=== PATIENT | male | born 1960 | race Caucasian/White ===

== ENCOUNTER 2021-02-04 15:25 | Inpatient (IN) | payer BC ==
[2021-02-04] MEDS ORDERED: Midazolam HCl 2 mg/2 ml Vial ONE (15:56)
[2021-02-04] MEDS ORDERED: Fentanyl 250 MCG/5 ML VIAL ONE (15:56)
[2021-02-04] MEDS ORDERED: SUGAMMADEX SODIUM 200 MG/2 ML VIAL ONE (16:54)
[2021-02-04] MEDS ORDERED: PROPOFOL 200 MG/20 ML VIAL ONE (17:02)
[2021-02-04] MEDS ORDERED: Ketorolac Tromethamine 30 MG/ML VIAL ONE (17:02)
[2021-02-04] MEDS ORDERED: Lidocaine 1% PF 5 ML VIAL ONE (17:02)
[2021-02-04] MEDS ORDERED: Ropivacaine 0.5% HCl/PF (150 MG/30 ML VIAL) ONE (17:02)
[2021-02-04] MEDS ORDERED: Succinylcholine 200 MG/10 ml SYRINGE FS ONE (17:02)
[2021-02-04] MEDS ORDERED: Ondansetron PF 4 MG/2 ML Vial ONE (17:02)
[2021-02-04] MEDS ORDERED: Rocuronium Bromide 10 MG/ML (10ML VIAL) ONE (17:02)
[2021-02-04] MEDS ORDERED: Dexamethasone 20 MG/5 ML VIAL ONE (17:02)
[2021-02-04] MEDS ORDERED: ceFOXitin 1 GM VIAL ONE (17:20)
[2021-02-04] MEDS ORDERED: diphenhydrAMINE 50 MG/ML VIAL IM PRN (19:38)
[2021-02-04] MEDS ORDERED: Promethazine HCl 25 MG/ML VIAL IM PRN ×2 (19:38→19:48)
[2021-02-04] MEDS ORDERED: diphenhydrAMINE 25 MG CAP PO PRN (19:38)
[2021-02-04] MEDS ORDERED: Naloxone HCl 0.4 mg/ml Vial IV PRN (19:38)
[2021-02-04] MEDS ORDERED: Zolpidem Tartrate 5 MG TAB PO PRN (19:38)
[2021-02-04] MEDS ORDERED: diphenhydrAMINE 50 MG/ML VIAL IVP PRN (19:38)
[2021-02-04] MEDS ORDERED: Ondansetron PF 4 MG/2 ML Vial IVP PRN ×2 (19:38→19:48)
[2021-02-04] MEDS: Lactated Ringer's 1,000 ML IV SCH (19:41)
[2021-02-04] MEDS ORDERED: Communication Order-Pharmacy FS SCH (19:45)
[2021-02-04] MEDS ORDERED: Dextrose 50% Abboject 50 ML SYRINGE SLOW IVP PRN (19:48)
[2021-02-04] MEDS ORDERED: Insulin Regular 300 UNITS/3 ML VIAL SC PRN (19:48)
[2021-02-04] MEDS ORDERED: Dextrose 5% in Water 1,000 ML IV PRN (19:48)
[2021-02-04] MEDS: fentaNYL Citrate/PF 2,000 MCG in Sodium Chloride 0.9% 60 ML IV PRN (20:20)
[2021-02-04 23:15] VITALS: BMI 35.5
[2021-02-04] MEDS: Famotidine/PF 20 mg/2ml Vial SLOW IVP SCH (23:41)
[2021-02-04] MEDS: Ketorolac Tromethamine 30 MG/ML VIAL IVP SCH (23:41)
[2021-02-04] MEDS: Famotidine 20 MG TAB PO SCH (23:42)
[2021-02-04] MEDS ORDERED: Piperacillin/Tazobactam 3.375 GM in Sodium Chloride 0.9% 100 ML IVPB SCH (23:59)
[2021-02-05] MEDS ORDERED: Piperacillin/Tazobactam 3.375 GM in Sodium Chloride 0.9% 100 ML IVPB SCH (02:45)
[2021-02-05] MEDS: Piperacillin/Tazobactam 3.375 GM in Sodium Chloride 0.9% 100 ML IVPB SCH ×3 (05:50→21:39)
[2021-02-05] MEDS: Ketorolac Tromethamine 30 MG/ML VIAL IVP SCH ×3 (05:51→18:31)
[2021-02-05] MEDS: Lactated Ringer's 1,000 ML IV SCH ×3 (05:52→21:36)
[2021-02-05 06:22] LABS: #Lymphocytes 0.5 thou/uL (1.20-3.40); #Monocytes 0.9 thou/uL (0.11-0.59); %Basophils 0.1 % (0.0-1.0); %Eosinophils 0.1 % (0.0-10.0); %Lymphocytes 3.1 % (21.0-51.0); %Monocytes 6.5 % (0.0-10.0); %Neutrophils 90.3 % (42.0-75.0); Hemoglobin 14.5 g/dL (14.0-18.0); Mean Corpuscular HGB CONC 33.7 g/dL (32.0-36.0); Mean Corpuscular Hemoglobin 32.6 pg (27.0-31.0); Mean Corpuscular Volume 96.9 fL (78.0-98.0); Mean Platelet Volume 7.9 fL (7.4-10.4); Platelet Count 177 thou/uL (130-400); RBC Distribution Width 12.5 % (11.5-14.5); Red Blood Cell (RBC) Count 4.43 mill/uL (4.70-6.10); White Blood Cell (WBC) Count 14.4 thou/uL (4.8-10.8)
[2021-02-05 06:48] LABS: Anion Gap 15 mmol/L (10-20); BUN (Urea Nitrogen) 12 mg/dL (8.4-25.7); Calc. Creatinine Clearance 141 mL/min (70-130); Carbon Dioxide 26 mmol/L (22-29); Chloride 103 mmol/L (98-107); Glucose 167 mg/dL (70-105); Potassium 4.5 mmol/L (3.5-5.1); Sodium 139 mmol/L (136-145)
[2021-02-05] MEDS: Famotidine/PF 20 mg/2ml Vial SLOW IVP SCH ×2 (08:39→21:39)
[2021-02-05] MEDS: Enoxaparin Sodium 40 MG/0.4 ML SYRINGE SC SCH (08:39)
[2021-02-05] MEDS: Famotidine 20 MG TAB PO SCH ×2 (08:40→21:38)
[2021-02-06] MEDS: Ketorolac Tromethamine 30 MG/ML VIAL IVP SCH ×4 (00:09→17:43)
[2021-02-06] MEDS: fentaNYL Citrate/PF 2,000 MCG in Sodium Chloride 0.9% 60 ML IV PRN (01:53)
[2021-02-06] MEDS: Lactated Ringer's 1,000 ML IV SCH (02:37)
[2021-02-06] MEDS: Piperacillin/Tazobactam 3.375 GM in Sodium Chloride 0.9% 100 ML IVPB SCH ×3 (06:22→21:14)
[2021-02-06] MEDS: Enoxaparin Sodium 40 MG/0.4 ML SYRINGE SC SCH (08:12)
[2021-02-06] MEDS: hydrALAZINE 20 MG/ML VIAL SLOW IVP PRN (08:13)
[2021-02-06] MEDS: Famotidine 20 MG TAB PO SCH ×2 (08:13→21:14)
[2021-02-06] MEDS: Famotidine/PF 20 mg/2ml Vial SLOW IVP SCH ×2 (08:13→21:16)
[2021-02-06] MEDS ORDERED: Fentanyl 100 MCG/2 ML VIAL SLOW IVP PRN ×2 (08:21)
[2021-02-06] MEDS ORDERED: Lactated Ringer's 1,000 ML IV SCH (08:22)
[2021-02-06] MEDS: HYDROcodone/Acetaminophen 7.5/325 mg Tablet PO PRN ×2 (10:21→21:12)
[2021-02-07] MEDS: Ketorolac Tromethamine 30 MG/ML VIAL IVP SCH ×2 (00:41→06:20)
[2021-02-07] MEDS: Piperacillin/Tazobactam 3.375 GM in Sodium Chloride 0.9% 100 ML IVPB SCH ×3 (06:20→21:44)
[2021-02-07] MEDS: HYDROcodone/Acetaminophen 7.5/325 mg Tablet PO PRN ×3 (07:47→20:30)
[2021-02-07] MEDS: Famotidine/PF 20 mg/2ml Vial SLOW IVP SCH ×2 (09:09→21:30)
[2021-02-07] MEDS: Enoxaparin Sodium 40 MG/0.4 ML SYRINGE SC SCH (09:10)
[2021-02-07] MEDS: Famotidine 20 MG TAB PO SCH ×2 (09:10→20:31)
[2021-02-07] MEDS: hydrALAZINE 20 MG/ML VIAL SLOW IVP PRN (14:29)
[2021-02-08] MEDS: HYDROcodone/Acetaminophen 7.5/325 mg Tablet PO PRN ×2 (02:31→09:04)
[2021-02-08] MEDS: Piperacillin/Tazobactam 3.375 GM in Sodium Chloride 0.9% 100 ML IVPB SCH (06:32)
[2021-02-08 07:34] VITALS: BP 161/90; TEMP 97.7
[2021-02-08] MEDS ORDERED: Alogliptin 25 MG TAB PO SCH (08:00)
[2021-02-08] MEDS ORDERED: metFORMIN XR 500 MG TAB PO SCH (08:00)
[2021-02-08] MEDS ORDERED: Losartan 25 MG TAB PO SCH (09:00)
[2021-02-08] MEDS ORDERED: Rosuvastatin 20 MG TAB PO SCH (09:00)
[2021-02-08] MEDS: Enoxaparin Sodium 40 MG/0.4 ML SYRINGE SC SCH (09:03)
[2021-02-08] MEDS: Famotidine 20 MG TAB PO SCH (09:04)
== END 2021-02-08 11:20 | disposition home or self-care (01) | DRG 331 ==
LOC: SDC/OP 15:25 → SURG A 19:48
PROVIDERS: ADMIT Specialist; ATTEND Specialist
PROC: 0DTA0ZZ Resection of Jejunum, Open Approach (ICD-10-PCS; principal; 2021-02-04)
DX: K57.00 Diverticulitis of small intestine with perforation and abscess without bleeding (principal); E11.9 Type 2 diabetes mellitus without complications; I10 Essential (primary) hypertension; E78.00 Pure hypercholesterolemia, unspecified; E66.9 Obesity, unspecified; Z68.35 Body mass index [BMI] 35.0-35.9, adult; Z88.0 Allergy status to penicillin
CPT/HCPCS: 36415; 36416; 80048; 85025; 87070; 87077; 87186; 87205; 88307; J0360; J0694; J1100; J1650; J1885; J2250; J2405; J2543; J2704; J2795; J3010; J3490; J7120; S0028

== ENCOUNTER 2022-06-12 11:27 | Emergency (ER) | payer OTHER, BC ==
[2022-06-12] MEDS ORDERED: Dexameth. Sod Phosp. 10 MG/ML (CHEMO USE ONLY) ONE (13:45)
[2022-06-12] MEDS ORDERED: Ketorolac Tromethamine 30 MG/ML VIAL ONE (13:45)
== END 2022-06-12 14:06 | disposition home or self-care (01) ==
LOC: ERS 11:27
DX: M17.11 Unilateral primary osteoarthritis, right knee (principal); I10 Essential (primary) hypertension; V84.4XXA Person injured while boarding or alighting from special agricultural vehicle, initial encounter
CPT/HCPCS: 96372; J1100; J1885

== ENCOUNTER 2025-03-19 07:51 | Outpatient (CLI) | payer OTHER ==
[2025-03-19 08:18] LABS: Estimated GFR - POC 99.0
== END 2025-03-19 07:52 | disposition home or self-care (01) ==
LOC: CT 07:51
PROVIDERS: ATTEND Nurse Practitioner Family
DX: N13.2 Hydronephrosis with renal and ureteral calculous obstruction (principal); R31.29 Other microscopic hematuria; K76.0 Fatty (change of) liver, not elsewhere classified
CPT/HCPCS: 36415; 74178; 82565

== ENCOUNTER 2025-03-31 11:52 | Outpatient (CLI) | payer OTHER ==
[2025-03-31 13:08] LABS: #Basophils 0.06 10x3/uL (0.0-0.2); #Eosinophils 0.16 10x3/uL (0.0-0.7); #Monocytes 1.20 10x3/uL (0.11-0.59); #Neutrophils 8.58 10x3/uL (1.40-6.50); %Basophils 0.5 % (0.0-1.0); %Eosinophils 1.4 % (0.0-10.0); %Lymphocytes 14.8 % (21.0-51.0); %Monocytes 10.2 % (0.0-10.0); %Neutrophils 72.7 % (42.0-75.0); Hematocrit 52.2 % (42.0-52.0); Hemoglobin 17.4 g/dL (14.0-18.0); Mean Corpuscular Hemoglobin 31.3 pg (27.0-31.0); Mean Corpuscular Volume 93.9 fL (78.0-98.0); Platelet Count 278 10x3/uL (130-400); Red Blood Cell (RBC) Count 5.56 mill/uL (4.70-6.10); White Blood Cell (WBC) Count 11.80 10x3/uL (4.8-10.8)
[2025-03-31 13:11] LABS: Glucose, Urine (Dipstick) Negative (Negative); Leukocyte Negative (Negative); Protein, Urine (Dipstick) Negative (Neg-Trace); Specific Gravity, Urine 1.010 (1.005-1.030)
[2025-03-31 13:14] LABS: Bacteria/HPF None Seen HPF (None Seen); RBC/HPF 21-50 HPF (0-3)
[2025-03-31 13:39] LABS: INR-International Normal Ratio 0.9; PTT 28.0 sec (22.9-36.1); Prothrombin Time 12.6 sec (12.0-14.7)
[2025-03-31 13:40] LABS: Anion Gap 15 mmol/L (10-20); BUN (Urea Nitrogen) 12 mg/dL (8.4-25.7); Calc. Creatinine Clearance 0 mL/min (70-130); Calcium 9.8 mg/dL (7.8-10.44); Carbon Dioxide 25 mmol/L (23-31); Chloride 104 mmol/L (98-107); Glucose 103 mg/dL (80-115); Potassium 4.3 mmol/L (3.5-5.1); Sodium 140 mmol/L (136-145)
== END 2025-03-31 11:53 | disposition home or self-care (01) ==
LOC: LABBT 11:52
PROVIDERS: ATTEND Urology
DX: Z01.818 Encounter for other preprocedural examination (principal); N20.0 Calculus of kidney
CPT/HCPCS: 80048; 81001; 85025; 85610; 85730; 87086; 93005; 93010

== ENCOUNTER → 2025-04-03 | Day surgery (SDC) | payer OTHER ==
[2025-03-31 12:19] VITALS: BMI 36.0
[~2025-04-03] MED LIST: LevoFLOXacin D5W 500 mg (100 mL) BAG ONE; Lidocaine 1% PF 5 ML VIAL ONE; Ondansetron PF 4 MG/2 ML Vial ONE; Oxybutynin 5 MG TAB ONE; PROPOFOL 200 MG/20 ML VIAL ONE; Rocuronium Bromide 10 MG/ML (10ML VIAL) ONE; SUGAMMADEX SODIUM 200 MG/2 ML VIAL ONE; fentaNYL PF 100 MCG/2 ML SYRINGE ONE
== END ==
LOC: SDC 10:01
PROVIDERS: ATTEND Urology
DX: N20.0 Calculus of kidney (principal); N40.1 Benign prostatic hyperplasia with lower urinary tract symptoms; I10 Essential (primary) hypertension; E11.9 Type 2 diabetes mellitus without complications; E78.5 Hyperlipidemia, unspecified; E29.9 Testicular dysfunction, unspecified; Z90.49 Acquired absence of other specified parts of digestive tract; Z88.0 Allergy status to penicillin; Z79.899 Other long term (current) drug therapy
CPT/HCPCS: 82365; 88300; C1747; C1758; C1769; C2617; J1100; J1956; J2405; J2704